=== PATIENT | male | born 1980 | race Caucasian/White ===

== ENCOUNTER 2021-01-11 22:57 | Emergency (ER) | payer OTHER, SELFPAY ==
--- NOTE | ~2021-01-11 | XR_ITS ---
XR ankle RT 2V DATE: 01/11/2021 23:26 INDICATION: Twisted ankle 2 days ago. Heel pain. TECHNIQUE: 2 views COMPARISON: None FINDINGS: Plantar and posterior calcaneal enthesopathy. No fracture or dislocation of the ankle or disruption of the ankle mortise is detected. There is soft tissue swelling, greater laterally. IMPRESSION: Mild lateral soft tissue swelling No fracture or dislocation Plantar and posterior calcaneal enthesopathy Reviewed, dictated and finalized at location A.
[2021-01-11 23:00] VITALS: BP 135/86; PULSE 97; RESP 20; TEMP 36.4; O2SAT 98
--- NOTE | 2021-01-11 23:18 | ED.LOWEXIN ---
HPI - Extremity Injury (Lower) General Chief Complaint: Extremity Injury, Lower Stated Complaint: R ankle pain History of Present Illness HPI Narrative: 40-year-old male patient is here with complaints of right ankle pain for the last 2 days. Apparently he rolled it off while he was walking and since then has had some swelling and pain in the ankle. Patient denies any other injuries. Patient has been walking on it with full weight-bearing. Denies any numbness of tingling. Patient denies any other injuries. States he is in good health Review of Systems Review of Systems: All systems reviewed & are unremarkable except as noted in HPI and below Exam Narrative: Exam Narrative: Alert male patient slightly intoxicated. No acute distress Stable vital signs. HEENT is normal except for flushed facies. No acute respiratory distress. Clear breath sounds. Right ankle is examined which is slightly swollen over the lateral malleolus. There is point tenderness over the distal lateral malleolus. There is no instability of the ankle joint noted. ROM at the ankle is in good range. Neurovascular status distally to the ankle is intact. Rest of the right lower extremity and all other extremities are within normal limits. Skin is warm and dry. Neuropsych exam is normal. Course Course Emergency Course: X-ray of the right ankle shows no obvious bony injury on preliminary reading . Patient will be fitted with an ankle wrap and discharged home. He states he has crutches at home and has been advised to use only if the swelling gets worse. Discharge Plan Discharge Clinical Impression: Ankle sprain and strain Patient Disposition: Home, Self-Care Condition: Stable Instructions: Ankle Sprain (ED) Additional Instructions: Tylenol or ibuprofen as needed for pain. . Elevate and ice the ankle for pain relief. Use the crutches if pain becomes severe with walking . Follow-up with your primary care physician as needed. Follow-up/Referrals: Franc,RUTH Lyons [Primary Care Provider] -
== END 2021-01-11 23:45 | disposition home or self-care (01) ==
PROVIDERS: Emergency Provider Emergency Medicine; PCP Physician Assistant
DX: S93.401A Sprain of unspecified ligament of right ankle, initial encounter (principal)
CPT/HCPCS: 73600; 99282; 99283; L4350

== ENCOUNTER 2021-07-07 11:45 | Emergency (ER) | payer OTHER, SELFPAY ==
--- NOTE | ~2021-07-07 | XR_ITS ---
XR tibia fibula RT 2V 07/07/2021 16:31 INDICATION: Right leg pain PROCEDURE: 2 views right tibia/fibula COMPARISON: No prior studies for comparison. FINDINGS: Fracture, dislocation or subluxation is not identified. The soft tissues appear within norm al limits. No foreign bodies are identified. There are degenerative calcaneal enthesophytes. There i s a small knee effusion. IMPRESSION: 1: NO ACUTE BONE OR JOINT ABNORMALITY IDENTIFIED. Reviewed, dictated and finalized at location A. BRAKE TECHNICIAN
[2021-07-07 12:00] VITALS: BP 167/97; PULSE 100; RESP 16; TEMP 37; O2SAT 98
[2021-07-07 13:15] VITALS: BP 144/86; PULSE 104; RESP 20; O2SAT 98
[2021-07-07] MEDS: KETOROLAC (*BKC) 60 MG/2 ML VIAL IM (13:21)
[2021-07-07 13:29] LABS: Basophils Absolute Auto 0.09 K/mm3 (0.00-0.10); Basophils Percent Auto 0.8 % (0.0-1.0); Eosinophils Absolute Auto 0.24 K/mm3 (0.02-0.50); Hematocrit 48.6 % (40.0-54.0); Hemoglobin 16.2 g/dL (14.0-18.0); Immature Granulocyte Absolute 0.03 K/mm3 (0.00-0.00); Immature Granulocyte Percent A 0.3 % (0.0-0.0); Lymphocytes Absolute Auto 2.22 K/mm3 (1.10-4.50); Lymphocytes Percent Auto 18.8 % (18.0-42.0); Mean Corpuscular HGB Conc 33.3 g/dL (32.0-36.0); Mean Corpuscular Hemoglobin 33.8 pg (27.0-31.0); Mean Corpuscular Volume 101.3 fL (78.0-102.0); Mean Platelet Volume 9.4 fl (8.7-11.0); Monocytes Absolute Auto 1.01 K/mm3 (0.10-0.90); Monocytes Percent Auto 8.6 % (2.0-11.0); Neutrophils Absolute Auto 8.2 K/mm3 (1.7-7.2); Neutrophils Percent Auto 69.5 % (50.0-70.0); Platelet Count Result 209 K/mm3 (150-420); White Blood Count 11.8 K/mm3 (4.8-10.8)
[2021-07-07 13:42] LABS: Alanine Aminotransferase 74 U/L (16-63); Albumin Level 3.4 g/dL (3.4-5.0); Alkaline Phosphatase 109 U/L (46-116); Anion Gap 8 mmol/L (8-16); Aspartate Amino Transferase 49 U/L (15-37); Bilirubin,Total 0.5 mg/dL (0.00-1.00); Blood Urea Nitrogen 10 mg/dL (7-18); Calcium 9.2 mg/dL (8.5-10.1); Carbon Dioxide 31 mmol/L (21-32); Chloride 101 mmol/L (98-108); Estimated CRCL calculation 113 ml/min; Estimated Glomerular Filt Rate > 60; Glucose 187 mg/dL (70-99); Osmolality Calculated 294 mOsm/kg (285-295); Sodium 140 mmol/L (136-145); Total Protein 7.4 g/dL (6.4-8.2)
[2021-07-07 13:43] LABS: D Dimer 0.28 mg/L (0.19-0.50); INR 1.1; Partial Thromboplastin Time 27.3 SEC (23.90-30.70); Prothrombin Time 11.3 Seconds (9.50-12.10)
--- NOTE | 2021-07-07 13:48 | PC.NURSE ---
Pt left in care of [facility]. Pt going to [facility] for ultrasound and will return after test with results.
[2021-07-07 15:55] VITALS: BP 142/81; PULSE 80; RESP 18; O2SAT 96
--- NOTE | 2021-07-07 15:55 | PC.NURSE ---
Pt returned from [facility]. Transferred back to bed.
--- NOTE | 2021-07-07 16:29 | PC.NURSE ---
pt has crutches available at home.
--- NOTE | 2021-07-07 16:44 | ED.EXTPRO ---
HPI - Extremity Problem General Source: patient and RN notes reviewed Mode of arrival: wheelchair Limitations: no limitations History of Present Illness Complaint: extremity pain (right calf to knee to anterior distal femur pain x 12 hr with inability to weight-bear ar present. no acute injury. no other joint pain) Onset (ago): hour(s) (12) Pain Consistency: constant Location: right and lower extremity Severity scale (1-10): 7 Quality: aching and dull Radiation: proximal Relieving factors: nothing Exacerbating factors: weight bearing Associated symptoms: denies other symptoms Related Data Allergies Allergy/AdvReac Type Severity Reaction Status Date / Time No Known Allergies Allergy Verified 07/07/21 12:13 Review of Systems Review of Systems: All systems reviewed & are unremarkable except as noted in HPI and below PMFSH Past Medical History Medical History Knee pain, acute Exam Const: General: no acute distress and alert Orientation/consciousness: patient oriented x3 Limitations: no limitations HENMT: Head: normal to inspection Ears: external ears normal and TM's normal bilaterally General nose exam: Normal external nose present and Normal nares present Mouth: Yes lip normal and Yes moist mucous membranes Teeth and gingiva: dentition normal Eyes: Conjunctivae: conjunctivae normal Pupils: Equal, round and reactive pupils present EOM: EOMs intact bilaterally Neck: Neck: normal visual inspection and no lymphadenopathy Chest: Chest palpation & inspection: normal inspection of the chest Resp: Effort & Inspection: normal respiratory effort Auscultation: clear to auscultation bilaterally Cardio: Rate: regular rate Rhythm: regular rhythm GI: GI Palp: Yes Soft to palpation and No Tenderness to palpation present (GI) Percussion: Yes normal to percussion : General: Yes no CVA tenderness Testes: Testes normal Back/Spine/Pelvis: Back: no CVA tenderness Skin: General skin exam: normal color Rashes: no rashes Neuro: General: patient oriented x3, moves all extremities, no meningeal signs, no focal motor deficits and CN's II-XI intact bilaterally Extrem: Other: minimal medial right knee effusion with no acute swelling, redness, deformity or tenderness. Psych: Appearance: grossly normal and well kempt Mental Status: mental status grossly normal Affect: normal affect Attitude: cooperative Thought content: Yes Normal thought content present Course Course Emergency Course: pt was less pain-ful in the ED. No DVT was found. For home and early PMD review. Reevaluation(s) Date: 07/07/21 Time: 12:43 Vital Signs Vital signs: Vital Signs Temperature 37.0 C 07/07/21 12:00 Pulse Rate 100 07/07/21 12:00 Respiratory Rate 16 07/07/21 12:00 Blood Pressure 167/97 H 07/07/21 12:00 Pulse Oximetry 98 07/07/21 12:00 Temperature 36.6 C 07/07/21 17:25 Pulse Rate 82 07/07/21 17:25 Respiratory Rate 20 07/07/21 17:25 Blood Pressure 141/91 H 07/07/21 17:25 Pulse Oximetry 98 07/07/21 17:25 MDM - Extremity (Nontraumatic) Differential Diagnosis Differential diagnosis: Likely gout, superficial thrombophlebitis and deep vein thrombosis of lower extremity Medical Records Attestation: I reviewed the patient's medical records. Lab Data Attestation: I reviewed the patient's lab results. Result diagrams: 07/07/21 12:51 07/07/21 12:51 Labs: Lab Results 07/07/21 07/07/21 07/07/21 Range/Units 12:51 12:51 12:51 WBC 11.8 H (4.8-10.8) K/mm3 RBC 4.80 (4.70-6.10) M/mm3 Hgb 16.2 (14.0-18.0) g/dL Hct 48.6 (40.0-54.0) % MCV 101.3 (78.0-102.0) fL MCH 33.8 H (27.0-31.0) pg MCHC 33.3 (32.0-36.0) g/dL RDW 12.0 (11.6-14.4) % Plt Count 209 (150-420) K/mm3 MPV 9.4 (8.7-11.0) fl Immature Gran % (Auto) 0.3 H (0.0-0.0) % Neut % (Auto) 69.5 (50.0-70.0) %
[2021-07-07 17:25] VITALS: BP 141/91; PULSE 82; RESP 20; TEMP 36.6; O2SAT 98
== END 2021-07-07 17:26 | disposition home or self-care (01) ==
PROVIDERS: Emergency Provider Emergency Medicine; PCP Physician Assistant
DX: M17.11 Unilateral primary osteoarthritis, right knee (principal)
CPT/HCPCS: 36415; 73590; 80053; 85025; 85380; 85610; 85730; 99283; J1885

== ENCOUNTER 2021-07-07 14:46 | Outpatient (CLI) | payer OTHER, SELFPAY ==
--- NOTE | ~2021-07-07 | US_ITS ---
EXAMINATION:US venous doppler LE RT INDICATION:Right leg pain TECHNIQUE: Multiple grayscale, color flow and Doppler images of the right lower extremity deep venous systems were obtained and reviewed. COMPARISON:No prior studies for comparison. FINDINGS: The common femoral, superficial femoral and popliteal veins demonstrate normal respiratory variation, augmentation and compressibility. Color flow is also seen within the posterior tibial, pe roneal, greater saphenous and profunda veins. IMPRESSION: 1: No lower extremity deep venous thrombosis. Reviewed, dictated and finalized at location A. 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
== END 2021-07-07 14:47 | disposition home or self-care (01) ==
LOC: ANHIMG 14:54
DX: M79.604 Pain in right leg (principal)
CPT/HCPCS: 93971